=== PATIENT | male | born 1950 | race Caucasian/White ===

== ENCOUNTER 2022-08-24 13:51 | Observation (INO) | payer OTHER ==
[~2022-08-24] VITALS: Ht 170.2 cm; Wt 103.4 kg
[2022-08-24 15:06] LABS: BASOPHILS ABSOLUTE AUTO 0.06 K/mm3 (0.00-0.23); BASOPHILS PERCENT AUTO 1 % (0-2); EOSINOPHILS ABSOLUTE AUTO 0.06 K/mm3 (0.00-0.68); EOSINOPHILS PERCENT AUTO 1 % (0-6); Hematocrit 45.3 % (37.0-53.0); Hemoglobin 15.9 g/dL (13.5-17.5); IMMATURE GRAN ABSOLUTE AUTO 0.04 K/mm3 (0.00-0.10); IMMATURE GRAN PERCENT AUTO 0 % (0-1); LYMPHOCYTES ABSOLUTE AUTO 1.91 K/mm3 (0.84-5.20); LYMPHOCYTES PERCENT AUTO 21 % (21-46); MONOCYTES ABSOLUTE AUTO 0.72 K/mm3 (0.16-1.47); MONOCYTES PERCENT AUTO 8 % (4-13); Mean Corpuscular HGB 32.7 pg (26.0-34.0); Mean Corpuscular HGB Conc 35.1 g/dL (31.5-36.5); Mean Corpuscular Volume 93 fL (80-100); Mean Platelet Volume 11.4 fL (9.1-12.4); NEUTROPHILS ABSOLUTE AUTO 6.17 K/mm3 (1.96-9.15); NEUTROPHILS PERCENT AUTO 69 % (41-73); Platelet Count 175 K/mm3 (150-400); RDW Coefficient Variation 12.1 % (11.7-14.2); RDW Standard Deviation 41.8 fL (35.1-46.3); Red Blood Cell Count 4.86 M/mm3 (4.30-5.90); White Blood Cell Count 8.96 K/mm3 (4.00-11.30)
[2022-08-24 15:07] LABS: Base Excess Venous 2.2 mmol/L; Bicarbonate Venous 25.3 mmol/L (24.0-30.0); PCO2 Venous 48.7 mmHg (38-42); pH Blood Venous 7.36 (7.34-7.37)
[2022-08-24 16:01] LABS: Beta-hydroxybutyrate 2.1 mg/dL (0.2-2.8)
[2022-08-24 16:18] LABS: Albumin, Blood 3.3 g/dL (3.4-5.0); Albumin/Globulin Ratio 0.9 (0.8-1.8); Bilirubin, Total 0.6 mg/dL (0.1-1.0); Bun/Creatinine Ratio 31.3 (12.0-20.0); Calcium, Blood 9.1 mg/dL (8.5-10.1); Creatinine, Blood 0.93 mg/dL (0.60-1.20); Globulin, Blood 3.8 g/dL (2.2-4.0); Total Protein, Blood 7.1 g/dL (6.4-8.2)
--- NOTE | 2022-08-24 23:54 | NUR ---
ASSUMPTION OF CARE THIS RN ASSUMED CARE OF PT AT 2015; REPORT FROM MAT CLEANING MACHINE OPERATOR, DEBORA. PT ARRIVED VIA [facility] [place], PT ABLE TO TRANSFER SELF TO PCU HOSPITAL BED. PT VSS. PT ON RA, SPO2 96 - 98%. PT A&O X4; INTERACTIVE AND PLEASANT. PT IS INTERACTING WITH STAFF, ALTHOUGH AFFECT IS FLAT. PT ANSWERING QUESTIONS APPROPRIATELY AND CORRECTLY. PT DENIES SOB. PT REPORTS 1/10 CP/PRESSURE. STATES "JUST FEELS LIKE SOMETHING IS THERE". PT REPORTS FEELING MILD PALPIATIONS FOR "SEVERAL WEEKS NOW". DENIES DIZZINESS, LIGHTHEADNESS, N/V. PT REPORTS INCREASE IN FREQUENCY OF VOIDING "FOR A LITTLE WHILE" "ESPECIALLY WHEN BLOOD SUGAR IS HIGH". REPORTS INCONSISTENCY IN BM; REPORTS THAT IT IS NOT "REGULAR OR OFTEN IT USUALLY IS". PT DOES REPORT SOME TINGLING AND NUMBNESS IN BLE "RELATED TO NEUROPATHY". PT DENIES ANY GENERAL PAIN AT THIS TIME. CBG 199. PT REPORTS BEING HUNGRY, SMALL SNACK PROVIDED. PT REPORTS HE HAS BEEN "HOPELESS AND DEPRESSED" D/T HIS CURRENT MARITAL PROBLEMS AND HIS SPOUSE "LEAVING HIM" PT DENIES DESIRE OR THOUGHTS TO CAUSE SELF HARM, DENIES ANY PLANS TO DO SO. PT DOES REPORT FEELING "LIKE HE IS DOWN AND IF HIS TIME WAS OVER HE WOULD BE OKAY WITH IT". PT APPEARS SAD D/T THIS SITUATION. THIS RN PROVIDED THERAPEUTIC COMMUNICATION AND LISTENING. PT DENIES ANY OTHER NEEDS OR CONCERNS AT THIS TIME. PT DOES HAVE NICOTINE PATCH ON L SHOULDER, THIS IS HIS FROM HOME. DECLINES NEED FOR PROVIDER TO ORDER ANY PATCHES WHILE HERE. THIS RN INFORMED HIM THAT IF HE CHANGED HIS MIND, WE COULD GET THEM ORDERED FOR HIM. PT VERBALIZED UNDERSTANDING. PT ORIENTED TO ROOM AND CALL LIGHT IN REACH
[2022-08-25 01:22] LABS: U Amphetamine Screen Not Detected; U Barbituate Screen Not Detected; U Benzodiazapine Screen Not Detected; U Buprenorphine Screen Not Detected; U Cannabinoids Screen Not Detected; U Cocaine Screen Not Detected; U Methadone Screen Not Detected; U Methamphetamine Screen Not Detected; U Opiates Screen Not Detected; U Oxycodone Screen Not Detected; U Phencyclidine Screen Not Detected; U Propoxyphene Screen Not Detected
--- NOTE | 2022-08-25 02:11 | NUR ---
ROUNDING; 0000 0000 VSS. PT SLEEPING ON AND OFF THROUGHOUT SHIFT. PT REPORTS NO CHANGES IN CP/PRESSURE; STILL RATING IT AT 1/10 W/NO CHANGES TO CHARACTERISTICS IN PRESENTATION. LR INFUSING PER EMAR. PT USING URINAL AT BEDSIDE INDEPENDENTLY. PT DENIES OTHER NEEDS OR CONCERNS AT THIS TIME. CALL LIGHT IN REACH
--- NOTE | 2022-08-25 02:13 | NUR ---
ROUNDING 0200 NO CHANGES. PT REMAINS STABLE. PT APPEARS TO BE SLEEPING WELL AT THIS TIME. CALL LIGHT IN REACH
[2022-08-25 04:30] LABS: Hematocrit 43.4 % (37.0-53.0); Hemoglobin 15.2 g/dL (13.5-17.5); Mean Corpuscular HGB 32.3 pg (26.0-34.0); Mean Corpuscular Volume 92 fL (80-100); Mean Platelet Volume 10.7 fL (9.1-12.4); Platelet Count 169 K/mm3 (150-400); RDW Coefficient Variation 12.3 % (11.7-14.2); RDW Standard Deviation 41.9 fL (35.1-46.3); White Blood Cell Count 9.17 K/mm3 (4.00-11.30)
[2022-08-25 04:57] LABS: Albumin, Blood 2.9 g/dL (3.4-5.0); Albumin/Globulin Ratio 0.9 (0.8-1.8); Bilirubin, Total 0.8 mg/dL (0.1-1.0); Bun/Creatinine Ratio 26.3 (12.0-20.0); Calcium, Blood 8.3 mg/dL (8.5-10.1); Creatinine, Blood 0.72 mg/dL (0.60-1.20); Globulin, Blood 3.2 g/dL (2.2-4.0); Magnesium, Blood 2.1 mg/dL (1.6-2.4); Thyroid Stimulating Hormone 1.09 uIU/mL (0.360-4.800); Total Protein, Blood 6.1 g/dL (6.4-8.2)
--- NOTE | 2022-08-25 05:11 | NUR ---
ROUNDING 0430 VSS. PT DENIES CP/PRESSURE AT THIS TIME, STATES IT HAS SUBSIDED. PT STATES HE IS RESTING WELL. DENIES ANY NEEDS OR CONCERNS AT THIS TIME. CALL LIGHT IN REACH.
--- NOTE | 2022-08-25 06:23 | NUR ---
SHIFT SUMMARY PT REMAINS A&O X4. VSS; ALTHOUGH PT HAD ONE 16 SEC RUN OF BIGEMENY/V-TACH PER WRAPPER LEAF INSPECTOR AT 0357. PT DENIED ANY SX DURING THIS TIME, OF NOTE PT WAS USING URINAL AT BEDSIDE DURING EVENT. PER WRAPPER LEAF INSPECTOR AROUND 0430, PT HAD EPISODE OF SB W/HR OF 46. OTHER THAN TELE EVENTS, NO SIGNIFICANT EVENTS OVERNIGHT. NO ACUTE CHANGES FROM ASSUMPTION OF CARE NOTE. PT REPORTS AT THIS TIME THAT CP/PRESSURE HAVE SUBSIDED. PT CONTINUES TO DENY DIZZINESS AND LIGHTHEADNESS. PT REPORT EVENT OF FEELING "UNSETTLED OR NAUSEOUS" AFTER EATING SNACK, BUT WAS SHORT IN DURATION. NO REPORTS SINCE. PT REPOSITIONS INDEPENDENTLY AND USING URINAL AT BEDSIDE INDEPENDENTLY. PT HAD BM X1 THIS SHIFT. CALL LIGHT IN REACH AND BED IN LOWEST POSITION. WILL UPDATE ONCOMING RN.
[2022-08-25] MEDS ORDERED: JARDIANCE10 MG PO (12:10)
[2022-08-25] MEDS ORDERED: GLIP5 PO (12:11)
[2022-08-25] MEDS ORDERED: METO100ER PO (12:12)
[2022-08-25] MEDS ORDERED: BASAGLAR K100 UNIT/1 SC (12:34)
[2022-08-25] MEDS ORDERED: HUMALOG KW100 UNIT/1 SC (12:36)
[2022-08-25] MEDS ORDERED: AMLO5 PO (12:37)
[2022-08-25] MEDS ORDERED: Toprol Xl50 MG PO (12:38)
--- NOTE | 2022-08-25 13:30 | NUR ---
DISCHARGE SUMMARY PT DISCHARGED HOME WITH HIS BROTHER. DISCHARGE TEACHING COMPLETED INCLUDING NEW MEDICATION LIST, FOLLOW UP APPOINTMENT AND DISCHARGE TEACHING. PT ABLE TO VERBALLY REPEAT AND DEMONSTRATE USE OF INSULIN PENS AND SLIDING SCALE INSULIN DOSAGE, NO FURTHER QUESTIONS AT THIS TIME. PT STATES UNDERSTANDING OF NEW MEDICATIONS WELL. IV AND TELE REMOVED. PT ABLE TO DRESS HIM SELF AND IS AMBULATORY IN ROOM, GAIT STEADY. RXs SENT TO [facility] AT PT'S REQUEST. NO FURTHER DISCHARGE NEEDS NOTED AT THIS TIME. PT LEFT HOSPITAL WITH ALL BELONGINGS.
== END 2022-08-25 13:32 | disposition home or self-care (01) ==
LOC: ER 13:51 → PCU 13:52
PROVIDERS: Student in an Organized Health Care Education/Training Program; ADMIT Student in an Organized Health Care Education/Training Program
DX: E11.65 Type 2 diabetes mellitus with hyperglycemia (principal); E87.1 Hypo-osmolality and hyponatremia; I47.20 Ventricular tachycardia, unspecified; E66.9 Obesity, unspecified; Z87.891 Personal history of nicotine dependence; Z68.34 Body mass index [BMI] 34.0-34.9, adult; Z88.2 Allergy status to sulfonamides; Z88.8 Allergy status to other drugs, medicaments and biological substances
CPT/HCPCS: 36415; 71045; 80053; 82010; 82803; 82947; 83036; 83735; 83880; 84443; 84484; 85025; 85027; 93005; 93010; 93306; 96361; 96365-59; 96366-59; 96372; 99285-25; A9270; G0378; J1650; J1815; J3475; J7030; J7120

== ENCOUNTER 2022-12-24 10:23 | Inpatient (IN) | payer OTHER ==
[~2022-12-24] VITALS: Ht 170.2 cm; Wt 96.8 kg
[~2022-12-24 10:23] MED LIST: AMLO5 PO; BASAGLAR K100 UNIT/1 SC; GLIP5 PO; HUMALOG KW100 UNIT/1 SC; JARDIANCE10 MG PO; METO100ER PO; Toprol Xl50 MG PO
[2022-12-24 11:50] LABS: BASOPHILS ABSOLUTE AUTO 0.05 K/mm3 (0.00-0.23); BASOPHILS PERCENT AUTO 0 % (0-2); EOSINOPHILS PERCENT AUTO 0 % (0-6); Hemoglobin 16.1 g/dL (13.5-17.5); IMMATURE GRAN ABSOLUTE AUTO 0.09 K/mm3 (0.00-0.10); IMMATURE GRAN PERCENT AUTO 1 % (0-1); LYMPHOCYTES ABSOLUTE AUTO 0.66 K/mm3 (0.84-5.20); LYMPHOCYTES PERCENT AUTO 5 % (21-46); MONOCYTES PERCENT AUTO 6 % (4-13); Mean Corpuscular HGB 32.9 pg (26.0-34.0); Mean Corpuscular HGB Conc 34.3 g/dL (31.5-36.5); Mean Corpuscular Volume 96 fL (80-100); Mean Platelet Volume 11.3 fL (9.1-12.4); NEUTROPHILS ABSOLUTE AUTO 12.07 K/mm3 (1.96-9.15); NEUTROPHILS PERCENT AUTO 88 % (41-73); Platelet Count 125 K/mm3 (150-400); RDW Standard Deviation 49.6 fL (35.1-46.3); White Blood Cell Count 13.67 K/mm3 (4.00-11.30)
[2022-12-24 12:52] LABS: Alanine Aminotransfer (ALT/SGP 21 U/L (12-78); Albumin, Blood 2.6 g/dL (3.4-5.0); Albumin/Globulin Ratio 0.6 (0.8-1.8); Alk Phos 77 U/L (50-136); Anion Gap 7 mmol/L (6-16); Aspartate Aminotrans (AST/SGOT 29 U/L (12-37); Blood Urea Nitrogen 19 mg/dL (8-24); Bun/Creatinine Ratio 16.8 (12.0-20.0); C-REACTIVE PROTEIN, EXT RANGE >19.000 mg/dL (0.000-0.300); CO2, Blood 26 mmol/L (21-32); Calcium, Blood 9.1 mg/dL (8.5-10.1); Chloride, Blood 101 mmol/L (98-108); Creatinine, Blood 1.13 mg/dL (0.60-1.20); Globulin, Blood 4.6 g/dL (2.2-4.0); Glomerular Filtration Rate 69 (60-); Glucose, Blood 192 mg/dL (70-99); Potassium, Blood 4.6 mmol/L (3.5-5.5); Sodium, Blood 134 mmol/L (136-145); Total Protein, Blood 7.2 g/dL (6.4-8.2)
[2022-12-24 17:50] VITALS: BP 129/63
--- NOTE | 2022-12-24 17:53 | NUR ---
ADMISSION NOTE PATIENT ARRIVED AT 1746 FROM ED. VITAL SIGNS REVIEWED. ADA DINNER TRAY ORDERED. ONOFRE VARELA WORKING ON ADMISSION ASSESSMENT. PATIENT LAYING COMFORTABLY IN BED WITH CALL LIGHT IN REACH.
[2022-12-24] MEDS ORDERED: TAMS.4ER PO (18:30)
[2022-12-24] MEDS ORDERED: GLIP5ER PO (18:30)
[2022-12-24] MEDS ORDERED: ELIQUIS5 M2 PO (18:30)
[2022-12-24] MEDS ORDERED: ENAL10 PO (18:32)
[2022-12-24 19:47] VITALS: BP 128/48
[2022-12-24 22:36] VITALS: BP 133/69
[2022-12-25 03:12] VITALS: BP 139/91
--- NOTE | 2022-12-25 04:33 | NUR ---
SHIFT SUMMARY PATIENT ALERT, PLEASANT AFFECT. DENIES SEVER PAIN, STATES LLE HURTS WITH MOVEMENT. IS ABLE TO STAND/PIVOT WITH ASSIST. DECLINES TO BARE WEIGHT ON LLE. DENIES SOB NOR DIFFICULTY BREATHING. ON TELE, AFIB 80-90s, VS OTHERWISE STABLE THROUGHOUT SHIFT. NPO SINCE MIDNIGHT, PENDING ORTHO CONSULT IN AM RE LEFT KNEE CELLULITIS. PIV TO LEFT AC INFUSING LR AT 100mL/HR. PATIENT EDUCATED ON FIRE SAFETY AND RISK OF INJURY R/T USE OF OXYGEN, VERBALIZED UNDERSTANDING, DENIES ACCESS TO ANY SOURCE OF IGNITION. BED IN LOW POSITION, CALL LIGHT WITHIN REACH.
[2022-12-25 05:37] LABS: Hematocrit 43.8 % (37.0-53.0); Hemoglobin 15.1 g/dL (13.5-17.5); Mean Corpuscular HGB 32.5 pg (26.0-34.0); Mean Corpuscular HGB Conc 34.5 g/dL (31.5-36.5); Mean Corpuscular Volume 94 fL (80-100); RDW Coefficient Variation 13.9 % (11.7-14.2); RDW Standard Deviation 48.5 fL (35.1-46.3); Red Blood Cell Count 4.64 M/mm3 (4.30-5.90); White Blood Cell Count 9.93 K/mm3 (4.00-11.30)
[2022-12-25 05:38] LABS: Mean Platelet Volume 11.2 fL (9.1-12.4); Platelet Count 131 K/mm3 (150-400)
[2022-12-25 05:59] LABS: Bun/Creatinine Ratio 21.3 (12.0-20.0); Calcium, Blood 9.1 mg/dL (8.5-10.1); Creatinine, Blood 1.08 mg/dL (0.60-1.20); Potassium, Blood 3.8 mmol/L (3.5-5.5)
[2022-12-25 06:01] LABS: BAND PERCENT MAN 14 % (0-8); BASOPHILS PERCENT MAN 0 % (0-2); EOSINOPHILS PERCENT MAN 0 % (0-6); LYMPHOCYTES % ATYPICAL MANUAL 1 % (0-0); LYMPHOCYTES ABSOLUTE MAN 0.99 K/mm3 (0.84-5.20); LYMPHOCYTES PERCENT MAN 9 % (21-46); MONOCYTES ABSOLUTE MAN 0.49 K/mm3 (0.16-1.47); MONOCYTES PERCENT MAN 5 % (4-13); NEUTROPHILS ABSOLUTE MAN 8.44 K/mm3 (1.96-9.15); SEG NEUTROPHILS PERCENT MAN 71 % (41-73); TOTAL CELLS COUNTED 100
[2022-12-25 08:51] VITALS: BP 149/54
[2022-12-25 11:12] LABS: RBC Count, Synovial Fluid 80000 /mm3 (0-0); WBC Count, Synovial Fluid >200000 /mm3 (0-180)
[2022-12-25 13:22] LABS: Body Fluid Crystals NEG (NEGATIVE)
[2022-12-25 13:26] LABS: Color, Synovial Fluid Yellow (None-P Yel); Lymphs, Synovial Fluid 9 % (0-15); Monocytes/Macrophages, Synovia 7 % (0-65); Neutrophils, Synovial Fluid 84 % (0-24)
[2022-12-25 13:27] LABS: Appearance, Synovial Fluid Cloudy (Clear)
[2022-12-25 15:45] VITALS: BP 156/79
[2022-12-25 16:28] LABS: Anti-Xa UFH, PHA Monitoring <0.10 IU/mL; International Normalized Ratio 1.02; Prothrombin Time Results 10.7 Sec (9.7-11.5)
--- NOTE | 2022-12-25 16:51 | NUR ---
SHIFT SUMMARY A&OX4, NAPPED T/O DAY. PAIN IN LLE, NO CHEST PAIN OR DIZZINESS. CONTNUED LEFT SIFED NUMBNESS BUT DOING BETTER WITH PHYSICAL THERAPY EXERCISES. COMPLAINED OF 8/10 LUQ PAIN, NO SWELLING NOTED. MEDICATED WITH TYLENOL AND PAIN DECREASED TO 5/10. PT HAD A BOUT OF LOOSE STOOL IN THE AFTERNOON. AND DOG IN ROOM WITH PATIENT ALL DAY. LEAVES PERIODICALLY TO "CHECK ON THE CAT THAT'S OUT IN THE CAR." NO SOURCES OF IGNITION PRESENT, ASSESSED DURING HOURLY ROUNDING. PATIENT'S IV AND TELE DC'D. NO ACUTE CHANGES THIS SHIFT.
[2022-12-25 19:32] VITALS: BP 152/74
[2022-12-26] VITALS (12 sets, daily range): BP systolic 101–171; BP diastolic 47–87
[2022-12-26 01:15] LABS: Hematocrit 40.6 % (37.0-53.0); Mean Corpuscular HGB 32.3 pg (26.0-34.0); Mean Corpuscular HGB Conc 34.5 g/dL (31.5-36.5); Mean Corpuscular Volume 94 fL (80-100); Mean Platelet Volume 11.2 fL (9.1-12.4); Platelet Count 126 K/mm3 (150-400); RDW Standard Deviation 48.5 fL (35.1-46.3); Red Blood Cell Count 4.33 M/mm3 (4.30-5.90); White Blood Cell Count 7.99 K/mm3 (4.00-11.30)
[2022-12-26 02:18] LABS: Calcium, Blood 8.5 mg/dL (8.5-10.1); Potassium, Blood 3.5 mmol/L (3.5-5.5)
--- NOTE | 2022-12-26 05:07 | NUR ---
SHIFT SUMMERY PT RESTING IN BED, PT HAS ON CPAP. PT UP TO BR FOR BM X 1. HEP DRIP AJUSTED X1 DURRING THE NIGHT. CALL LIGHT IN REACH, FIRE SAFETY REVIEWED.
[2022-12-26 12:49] LABS: Vancomycin, Trough 6.9 ug/mL (5.0-10.0)
--- NOTE | 2022-12-26 13:11 | NUR ---
SPOKE WITH DR BAZAN AND DR SEGURA REGARDING PATIENT ON HEPARIN GTT. NEW ORDERS TO STOP GTT AND GET A LEVEL NOW AND ANOTHER ONE IN 1 HOUR. CALLED TO FLOOR NURSE AND PHARMACY WITH NEW ORDERS.
--- NOTE | 2022-12-26 17:26 | NUR ---
SHIFT SUMMARY PT RESTING QUIETLY WITH CPAP ON DURING SHIFT REPORT; DENIED NEEDS. HEPARIN DRIP INFUSING PER EMAR. PT NPO SINCE [place] FOR I&D ON L KNEE TODAY. LLE VERY RED AND SWOLLEN. PT UP TO BTHRM USING FWW AND SBA ASSIST, BUT REPORTS PAIN WITH WT BEARING TO LLE. 1435 OR STAFF HERE TO TAKE PT DOWN FOR I&D; HEPARIN DRIP STOPPED EARLIER PER ADVERTISING INSERTER, AFTER TALKING TO MD. LAB DRAWS DONE PER ORDERS PLACED. FAMILY TO RM JUST PRIOR TO PT GOING FOR PROCEDURE AND REMAIN IN WAITING FOR PT TO RETURN. PROCEDURE TO BE NEAR COMPLETION.
--- NOTE | 2022-12-26 20:03 | NUR ---
1800 PT RETURNED TO RM AFTER L KNEE I&D. REPORT GIVEN AT BS. DR SCHRADER NOTIFIED REGARDING HEPARIN DRIP. INSTRUCTIONS GIVEN TO CONTACT ORTHO FOR ORDERS R/T HEPARIN. DR CISNEROS ANS NOTIFIED AND DR CISNEROS LATER RETURNED CALL. HEPARIN TO BE HELD UNTIL AM. REPORT GIVEN TO ONCOMING RN AND KEELER POLYGRAPH OPERATORCORY.
[2022-12-27 03:47] VITALS: BP 136/74
--- NOTE | 2022-12-27 04:45 | NUR ---
SHIFT SUMMERY PT RESTING IN B ED, PT DURING NIGH MEDICATED WITH TYLENOL , TORIDOL AND FENT, WITH LITTLE PAIN RELIEF, PT RATED PAIN A 9/10 ORDER FOR HOSPITALIST FOR PERCOCET. PT STATED IT HELED WITH PAIN. ICE APPLYED TO KMEE ALSO. CALL LIGHT IN REACH. FIRE LAUREANO REVIEWED.
[2022-12-27 05:07] LABS: Hematocrit 43.2 % (37.0-53.0); Hemoglobin 14.5 g/dL (13.5-17.5); Mean Corpuscular HGB 31.7 pg (26.0-34.0); Mean Corpuscular HGB Conc 33.6 g/dL (31.5-36.5); Mean Corpuscular Volume 95 fL (80-100); Mean Platelet Volume 11.6 fL (9.1-12.4); Platelet Count 130 K/mm3 (150-400); RDW Standard Deviation 49.2 fL (35.1-46.3); Red Blood Cell Count 4.57 M/mm3 (4.30-5.90); White Blood Cell Count 7.63 K/mm3 (4.00-11.30)
[2022-12-27 05:38] LABS: Albumin, Blood 1.8 g/dL (3.4-5.0); Anion Gap 7 mmol/L (6-16); Blood Urea Nitrogen 22 mg/dL (8-24); Bun/Creatinine Ratio 22.1 (12.0-20.0); CO2, Blood 25 mmol/L (21-32); Calcium, Blood 8.4 mg/dL (8.5-10.1); Chloride, Blood 108 mmol/L (98-108); Glomerular Filtration Rate 79 (60-); Glucose, Blood 221 mg/dL (70-99); Phosphorus, Blood 4.5 mg/dL (2.5-4.9); Potassium, Blood 4.2 mmol/L (3.5-5.5); Sodium, Blood 140 mmol/L (136-145)
[2022-12-27 07:31] VITALS: BP 139/74
--- NOTE | 2022-12-27 10:45 | NUR ---
ASSUMED CARE AND COMFORT OF THIS PATIENT AT 0715 THIS AM. FIRE SAFETY ROUNDING DONE AT REPORT. NO CONCERNS NOTED. PATIENT WAS RESTING IN BED. ENCOURAGED TO MOVE AND TURN TO ASSIST IN PREVENTING SKIN BREAKDOWN. PATIENT EDUCATED AND VERBALIZED UNDERSTANDING.
--- NOTE | 2022-12-27 14:49 | NUR ---
ASSUMED CARE A/O HEPARIN INFUSING CORRECTED DOCUMENTATION PER PHARMACY. 20 UNITS AN HOUR. ONE PERSON ASSIST WITH WALKER AT SIDE OF BED TO USE URNIAL, PT GIVEN PAIN MED FOR LEFT LEG PAIN NOW COMFORTABLE IN BED., BILATERAL IV INFUSING VANCO TO RIGHT FA NO S/S INFILTRATION.
[2022-12-27 16:17] VITALS: BP 126/64
--- NOTE | 2022-12-27 19:17 | NUR ---
REPORT GIVEN TO TOSIN VARELA. PT W/O COMPLAINT VSS, COVERED FOR PAIN TO LEFT LEG. RN AWARE
[2022-12-27 19:39] VITALS: BP 141/72
[2022-12-28 02:37] VITALS: BP 136/73
--- NOTE | 2022-12-28 04:05 | NUR ---
SHIFT SUMMARY PATIENT HAD NO ACUTE CHANGES OBSERVED. AXOX 4 AND ONE ASSIST TO BSC W/FWW. PIVS REMAIN INTACT. HEPARIN INFUSING @ 31.2 mL/HR MANAGE BY PHARMACY. IV ABX INFUSED. TELE MONITOR NSR 83. CBG 223. REPORTED LEFT KNEE PAIN X TWO AND PERCOCET GIVEN PER EMAR. VSS/AFEBRILE. DENIES CHEST PAIN, SOB, AND N/V. CPAP ON AT NIGHT. CALL LIGHT IN REACH. BED IN LOWEST POSITION. WILL CONTINUE TO MONITOR UNTIL DAY SHIFT NURSE ASSUMES CARE.
[2022-12-28 05:35] LABS: Hematocrit 39.7 % (37.0-53.0); Hemoglobin 13.8 g/dL (13.5-17.5); Mean Corpuscular HGB 32.2 pg (26.0-34.0); Mean Corpuscular HGB Conc 34.8 g/dL (31.5-36.5); Mean Corpuscular Volume 93 fL (80-100); Mean Platelet Volume 10.9 fL (9.1-12.4); Platelet Count 168 K/mm3 (150-400); RDW Coefficient Variation 14.3 % (11.7-14.2); RDW Standard Deviation 48.9 fL (35.1-46.3); Red Blood Cell Count 4.28 M/mm3 (4.30-5.90); White Blood Cell Count 8.38 K/mm3 (4.00-11.30)
[2022-12-28 05:58] LABS: Albumin, Blood 1.8 g/dL (3.4-5.0); Anion Gap 4 mmol/L (6-16); Blood Urea Nitrogen 22 mg/dL (8-24); Bun/Creatinine Ratio 22.7 (12.0-20.0); CO2, Blood 28 mmol/L (21-32); Calcium, Blood 8.4 mg/dL (8.5-10.1); Chloride, Blood 109 mmol/L (98-108); Creatinine, Blood 0.97 mg/dL (0.60-1.20); Glomerular Filtration Rate 82 (60-); Glucose, Blood 130 mg/dL (70-99); Phosphorus, Blood 2.9 mg/dL (2.5-4.9); Potassium, Blood 4.1 mmol/L (3.5-5.5); Sodium, Blood 141 mmol/L (136-145)
[2022-12-28 07:23] VITALS: BP 128/92
--- NOTE | 2022-12-28 16:08 | NUR ---
SHIFT SUMMARY: PATIENT A&OX4. PLEASANT AND COOPERATIVE c CARE. USES CALL LIGHT APPROPRIATELY AND ABLE TO MAKE NEEDS KNOWN. PATIENT WORK c PT MOBILITY THIS PM. PATIENT AMBULATES c FWW IN THE HALLWAY AND BACK IN ROOM c PT'S ASSISTANCE AND TOLERATED WELL. PT RECOMMENDED DC HOME c HH SERVICES. DRESSING CHANGED TO L KNEE WAS DONE BY DR. SEGURA THIS AFTERNOON. PAIN TO L KNEE WELL CONTROLLED c PAIN MEDS PER EMAR AND REPOSITIONING. RECEIVED SCHEDULED MEDS PER EMAR. VITAL SIGNS REVIEWED. PIV TO R FOREARM SALINE LOCKED, PIV TO L WRIST INFUSING HEPARIN c NO CHANGES IN RATE PER PHARMACY. CALL LIGHT IN REACH.
[2022-12-28 16:39] VITALS: BP 140/77
--- NOTE | 2022-12-28 18:47 | NUR ---
ADDITIONAL NOTE: PATIENT STILL ON TELE, SR HR RANGES 60'S-90'S BPM c OCCASIONAL PAC AND PVC T/O SHIFT. AT AROUND 1600'S RECEIVED CALL FROM GAMEPLAY ENGINEER, JAQUELIN FELICIANO PATIENT HAD BIGEMINY. PER GAMEPLAY ENGINEER IS NOT NEW, PATIENT HAD EPISODE OF BIGEMINY BACK IN 12/26 AND 12/27. REPORT TO TRANSITION PROGRAM MANAGER, MANISH ALVAREZ REGARDING THIS ISSUE. PER MANISH TO CONTINUE TO MONITOR PATIENT CONDITION. PT EDUCATED ON NON SMOKING POLICY, RISK OF INJURY, AND IGNITION SOURCES WHEN O2 IN USE. PATIENT DENIES SMOKING AND STATED UNDERSTANDING.
[2022-12-28 20:47] VITALS: BP 153/73
[2022-12-29 03:01] VITALS: BP 161/75
--- NOTE | 2022-12-29 03:16 | NUR ---
PT HAD 6 BEAT RUN OF VTACH. PT EXPERIENCING NAUSEA. DR. RAVI NOTIFIED. TREATED NAUSEA PER EMAR
[2022-12-29 05:04] LABS: Hematocrit 41.6 % (37.0-53.0); Mean Platelet Volume 10.8 fL (9.1-12.4); Platelet Count 219 K/mm3 (150-400)
--- NOTE | 2022-12-29 05:12 | NUR ---
SHIFT SUMMARY PT IS ALERT AND ORIENTED X4. PAIN HAS BEEN HARD TO CONTROL. PT HAD 6 BEAT RUN OF VTACH. NOTIFIED HOWEVER NO ACUTE CHANGES OVER NIGHT. Q4 HR TURNS PT ON R/A. DURING HOURLY ROUNDING, EDUCATION PROVIDED ON RISKS OF INJURY WHILE USING AN IGNITION SOURCE AROUND OXYGEN. THE PT VERBALIZES UNDERSTANDING AND DENY HAVING ANY IGNITION SOURCES
[2022-12-29 07:39] VITALS: BP 133/63
[2022-12-29 08:19] LABS: Albumin, Blood 1.8 g/dL (3.4-5.0); Anion Gap 5 mmol/L (6-16); Blood Urea Nitrogen 16 mg/dL (8-24); Bun/Creatinine Ratio 18.9 (12.0-20.0); CO2, Blood 28 mmol/L (21-32); Chloride, Blood 109 mmol/L (98-108); Creatinine, Blood 0.85 mg/dL (0.60-1.20); Glomerular Filtration Rate 92 (60-); Glucose, Blood 103 mg/dL (70-99); Magnesium, Blood 1.6 mg/dL (1.6-2.4); Phosphorus, Blood 3.1 mg/dL (2.5-4.9); Potassium, Blood 3.9 mmol/L (3.5-5.5); Sodium, Blood 142 mmol/L (136-145)
[2022-12-29 15:56] VITALS: BP 151/60
--- NOTE | 2022-12-29 17:29 | NUR ---
SHIFT SUMMARY: PATIENT A&OX4. PLEASANT AND COOPERATIVE c CARE. DENIES CP/PRESSURE, SOB, N/V. STILL ON TELE, SR HR IN THE MID 80'S BPM c OCCASIONAL PAC AND PVC-BIGEMINY. RA c SPO2 RANGES 90-94% T/O SHIFT. L LEG IMMOBILIZER IN PLACE. PAIN TO L KNEE WELL CONTROLLED c EMAR PAIN MEDS AND REPOSITIONING T/O SHIFT. PATIENT PARTICIPATED c PT MOBILTY TODAY AND TOLERATED WELL. VITAL SIGNS REVIEWED. PIV TO FOREARM SALINE LOCKED. PIV TO L HAND INFUSING HEPARIN, RATE CONTROLLED BY PHARMACY. RECEIVED SCHEDULED MEDS PER EMAR. PATIENT EATING AND DRINKING WELL. CONTINENT OF BOWELS AND BLADDER. CALL LIGHT IN REACH.
[2022-12-29 20:32] VITALS: BP 168/71
--- NOTE | 2022-12-30 03:58 | NUR ---
SHIFT SUMMARY 72 YR M ADMITTED ON 12/24/22 FOR SEPSIS/LEFT KNEE CELLULITIS. FULL CODE. NO ACUTE CHANGES THIS SHIFT. PT C/O PAIN IN LEFT KNEE AND MEDICATED PER EMAR W/ GOOD RESULTS. PER PHARMACY, HEPARIN WAS DC'D AT 1999 AND ELEQUIS WAS STARTED AT 2099. NO CALLS FROM KINESIOLOGY PROFESSOR THIS SHIFT. PT IS PLEASANT AND COOPERATIVE W/ CARE. CALLS APPROPRIATELY. PT HAS BEEN EDUCATED ON IGNITION DANGER AND FIRE SAFETY WHILE OXYGEN IS IN USE.
[2022-12-30 07:32] VITALS: BP 162/85
[2022-12-30 16:12] VITALS: BP 152/73
[2022-12-30 19:26] VITALS: BP 167/73
--- NOTE | 2022-12-30 19:31 | NUR ---
SHIFT SUMMARY: PATIENT A&OX4. PLEASANT AND COOPERATIVE c CARE. USES CALL LIGHT APPROPRIATELY AND ABLE TO MAKE NEEDS KNOWN. L KNEE DRESSING C/D/I AND WRAP c NILS WRAP, IMMOBILZER IN PLACE. PAIN TO L KNEE WELL CONTROLLED c EMAR PAIN MEDS AND REPOSITIONING T/O SHIFT. EATING AND DRINKING WELL. VITAL SIGNS REVIEWED. NO NEW ACUTE CHANGES THIS SHIFT. CALL LIGHT IN REACH.
[2022-12-31 03:27] VITALS: BP 168/77
[2022-12-31 04:40] LABS: Hematocrit 41.6 % (37.0-53.0); Hemoglobin 14.2 g/dL (13.5-17.5); Mean Corpuscular HGB 31.4 pg (26.0-34.0); Mean Corpuscular HGB Conc 34.1 g/dL (31.5-36.5); Mean Corpuscular Volume 92 fL (80-100); Mean Platelet Volume 10.3 fL (9.1-12.4); Platelet Count 262 K/mm3 (150-400); RDW Coefficient Variation 14.2 % (11.7-14.2); RDW Standard Deviation 48.1 fL (35.1-46.3); Red Blood Cell Count 4.52 M/mm3 (4.30-5.90); White Blood Cell Count 8.87 K/mm3 (4.00-11.30)
--- NOTE | 2022-12-31 04:51 | NUR ---
SHIFT SUMMARY PT REPORTS HAVING BETTER SLEEP AND PAIN CONTROL WITH Q4HR MEDICATION SCHEDULE. NO ACUTE CHANGES OVERNIGHT. BED IS IN THE LOWEST POSITION WITH CALL LIGHT IN REACH. PT DENIES HAVING IGNITION SOURCE. CONTINUED EDUCAITON PROVIDED ON RISKS OF HAVING IGNITION SOURCE NEAR OXYGEN . PT VERBALIZES UNDERSTANDING. BED IS IN LOWEST POSITION WITH CALL LIGHT IN REACH
[2022-12-31 04:55] LABS: Bun/Creatinine Ratio 15.1 (12.0-20.0); Calcium, Blood 8.3 mg/dL (8.5-10.1); Creatinine, Blood 0.79 mg/dL (0.60-1.20)
[2022-12-31 07:52] VITALS: BP 164/96
[2022-12-31 15:35] VITALS: BP 146/59
--- NOTE | 2022-12-31 16:15 | NUR ---
SHIFT SUMMARY PT AOX4, SBA TO THE BATHROOM. HE WAS HOPING TO GO HOME TODAY BUT THAT IS NOT GOING TO HAPPEN TO LOGISTICAL DETAILS. PT IS AWARE, CASE MANAGEMENT SPOKE WITH THE PT WELL. POWERGLIDE PLACED TODAY BY THE CHARGE NURSE FOR ABX TX OUTPT IN THE FUTURE. PT HAS C/O PAIN AND MEDICATED PER THE EMAR. L LEG BRACE IN PLACE. PT WAS INFORMED OF THE FIRE SAFETY AND PROTOCOLS. PT ACKNOWLEDGED UNDERSTANDING AND NO IGNITION SOURCES WERE NOTED. CALL LIGHT WITHIN REACH, BED IN THE LOWEST POSITION. WILL REPORT TO ONCOMING NURSE.
[2022-12-31 20:12] VITALS: BP 143/65
[2023-01-01 03:49] VITALS: BP 154/77
--- NOTE | 2023-01-01 04:55 | NUR ---
SHIFT SUMMARY PT IS DROWSY BUT EASILY AROUSABLE, ORIENTED X4. HARD OF HEARING. PT REPORTS THAT PAIN HAS BEEN MORE ADEQUATELY CONTROLLED. CPAP OVERNIGHT. NO ACUTE CHANGES. REMOVED BRACE AND ELEVATED EXTREMETIES. +2 EDEMA NOTED IN BLE. SCD IN PLACE ON RIGHT LOWER EXTREMITY DENIES CHEST PAIN. PT EDUCATED ON RISK OF HAVING IGNITION SOURCES AROUNG OXYGEN. PT DENY HAVING IGNITION SOURCE
[2023-01-01 07:42] VITALS: BP 156/70
[2023-01-01 15:57] VITALS: BP 133/112
[2023-01-01 15:59] VITALS: BP 133/69
--- NOTE | 2023-01-01 17:20 | NUR ---
SHIFT SUMMARY PT AOX4, NO ACUTE EVENTS THIS SHIFT. PT C/O PAIN AND MEDICATED PER THE EMAR. REPOSITIONTED PRN FOR THE L LEG. PT COOPERATIVE THIS SHIFT. POWERGLIDE IN THE NILES. PT EDUCATED ON THE FIRE PROCEDURES AND PROTOCOLS. PT VERBALIZED UNDERSTANDING. CALL LIGHT WITHIN REACH, BED IN THE LOWEST POSITION. WILL REPORT TO ONCOMING NURSE.
[2023-01-01 19:50] VITALS: BP 149/63
[2023-01-02 04:06] VITALS: BP 154/67
[2023-01-02 04:10] VITALS: BP 161/72
--- NOTE | 2023-01-02 04:46 | NUR ---
SHIFT SUMMARY; NO ACUTE CHANGES OVERNIGHT. THE PT IS AXO X4 AND A 1 ASSIST TO THE BATHROOM. THE PT HAS A L KNEE BRACE THAT HE IS TO WEAR WHEN HE IS UP AND AMBULATING. THE PTS L KNEE IS WRAPPED IN GAUZE AND NILS BANDAGE FROM A PREVIOUS I&D, DR. SEGURA DID A DRESSING CHANGE ON 12/28. PER REPORT, IS MANAGING DRESSING CHANGES, WE HAVE NO DRESSING CARE ORDERS. THE PT HAS BEEN SLEEPING IN BED FOR THE ENTIRETY OF THE NIGHT. THE PT DENIES ANY CHEST PAIN/PRESSURE, SOB OR N/V. THE PT DID ENDORSE SOME SIGNIFICANT PAIN IN HIS L KNEE FOR WHICH HE WAS MEDICATED FOR WITH GOOD RELIEF. CURRENTLY THE PT IS RESTING IN BED WITH THE BED IN THE LOWEST POSITION AND THE CALL LIGHT WITHIN REACH. FIRE SAFETY MAINTAINED T/O THE SHIFT.
[2023-01-02 07:37] VITALS: BP 163/71
[2023-01-02 08:54] LABS: BASOPHILS ABSOLUTE AUTO 0.04 K/mm3 (0.00-0.23); BASOPHILS PERCENT AUTO 0 % (0-2); EOSINOPHILS ABSOLUTE AUTO 0.02 K/mm3 (0.00-0.68); EOSINOPHILS PERCENT AUTO 0 % (0-6); Hematocrit 43.9 % (37.0-53.0); Hemoglobin 14.8 g/dL (13.5-17.5); IMMATURE GRAN PERCENT AUTO 1 % (0-1); LYMPHOCYTES ABSOLUTE AUTO 1.32 K/mm3 (0.84-5.20); LYMPHOCYTES PERCENT AUTO 13 % (21-46); MONOCYTES ABSOLUTE AUTO 0.78 K/mm3 (0.16-1.47); MONOCYTES PERCENT AUTO 8 % (4-13); Mean Corpuscular HGB 31.6 pg (26.0-34.0); Mean Corpuscular HGB Conc 33.7 g/dL (31.5-36.5); Mean Corpuscular Volume 94 fL (80-100); Mean Platelet Volume 10.2 fL (9.1-12.4); NEUTROPHILS PERCENT AUTO 78 % (41-73); Platelet Count 343 K/mm3 (150-400); RDW Coefficient Variation 14.1 % (11.7-14.2); RDW Standard Deviation 48.4 fL (35.1-46.3); Red Blood Cell Count 4.68 M/mm3 (4.30-5.90); White Blood Cell Count 10.36 K/mm3 (4.00-11.30)
[2023-01-02 09:15] LABS: Albumin, Blood 2.1 g/dL (3.4-5.0); Albumin/Globulin Ratio 0.5 (0.8-1.8); Bun/Creatinine Ratio 13.2 (12.0-20.0); Calcium, Blood 8.8 mg/dL (8.5-10.1); Creatinine, Blood 0.83 mg/dL (0.60-1.20); Globulin, Blood 4.5 g/dL (2.2-4.0); Potassium, Blood 4.2 mmol/L (3.5-5.5); Total Protein, Blood 6.6 g/dL (6.4-8.2)
[2023-01-02 15:44] VITALS: BP 153/74
--- NOTE | 2023-01-02 18:19 | NUR ---
SHIFT SUMMARY: JUST AFTER 0700 THIS MORNING, WAS HAVING SEVERAL RUNS OF V TACH (6-18 BEATS), AND PVC'S > 15/MINUTE WITH SOME BIGEMINY. DR. DURAN NOTIFIED; LABS DRAWN AND MORNING BP MEDS GIVEN. AFTER ~ 1100, NO FURTHER EPISODES WERE REPORTED. PATIENT DENIED CHEST DISCOMFORT, PRESSURE, AND SOB DURING THESE EPISODES. C/O PAIN IN LLE; MEDICATED PER EMAR WITH SOME RELIEF. USING URINAL INDEPENDENTLY. APPETITE GOOD. EXPRESSED FRUSTRATION WITH STILL BEING IN HOSPITAL, WAS TRYING TO HELP ARRANGE INFUSIONS, ETC. WITH [facility], BUT THIS AUTHOR EXPLAINED THAT SUPERVISOR BROADLOOM WAS ALREADY WORKING ON IT; CM REPORTED PROGRESS TO PATIENT THIS AFTERNOON.
[2023-01-02 19:42] VITALS: BP 145/69
[2023-01-03 03:46] VITALS: BP 155/69
--- NOTE | 2023-01-03 04:49 | NUR ---
SHIFT SUMMARY NO ACUTE CHANGES TO PT CONDITION. PT PLEASANT AND COOPERATIVE WITH CARE. PT WANTING TO GET OUT OF THE HOSPITAL HERE AND GO TO [place] TO BE WITH HIS SON. PT HAS HAD NO COMPLAINTS THIS SHIFT. PT HAS SCD IN PLACE ON HIS R LEG, HIS L LEG HAS A BRACE ON IT. CALL LIGHT IS WITHIN HIS REACH AND PT HAS AN UNDERSTANDING OF HOW TO USE IT.
[2023-01-03 07:36] VITALS: BP 149/74
[2023-01-03 14:58] VITALS: BP 141/67
--- NOTE | 2023-01-03 18:10 | NUR ---
THE PATIENT IS RESTING EATING HIS DINNER AT THIS TIME, THE PATIENT HAD SEVERAL RUNS OF PAC/PVC, SOME LONG 12 SECONDS, DR. BUSTOS WAS CALLED AND SHE ORDERED CORDARONE 200 MG FOR THE PATIENT, MEDICATION SEEMED TO HELP THE SITUATION AND SLOW DOWN THE DISRYMIAS. THE PATIENT IS DISAPPOINTED THAT HIS WS NOT DISCHARGED TODAY. THE PATIENT WAS EDUCATED ON THE DANGERS OF FIRES AND IGNITION SOURCES. WILL CONTINUE TO MONITOR THE PATIENT.
[2023-01-03 20:14] VITALS: BP 137/60
[2023-01-04 04:21] VITALS: BP 93/42
[2023-01-04 05:05] VITALS: BP 120/68
--- NOTE | 2023-01-04 05:09 | NUR ---
SHIFT SUMMARY PT CONTINUES TO BE PLEASANT AND COOPERATIVE WITH CARE. PT FRUSTRATED ABOUT SITUATION AND WANTS TO BE DISCHARGED TO GO TO [place] WITH HIS SON. PT HAS CALL LIGHT WITHIN HIS REACH AND USES IT APPROPRIATELY.
[2023-01-04 07:23] VITALS: BP 116/55
[2023-01-04] MEDS ORDERED: Acetaminophen650 M1 PO (14:52)
[2023-01-04] MEDS ORDERED: Amiodarone HCl200 MG PO (14:53)
[2023-01-04] MEDS ORDERED: CEFTRIAXON1 GM/50 M1 IV (14:55)
[2023-01-04] MEDS ORDERED: Nicoderm Cq1 EAC1 TOP (14:56)
[2023-01-04] MEDS ORDERED: Percocet 5-3251 EACH PO (14:58)
[2023-01-04] MEDS ORDERED: VISBIOME 112.51 EACH PO (14:59)
--- NOTE | 2023-01-04 16:40 | NUR ---
Discharge instructions reviewed with patient. Patient verbalizes understanding. Copy given to patient to take home. Patient States Post-Procedure ride home has been arranged. Discharged via wheelchair to private car for ride home. THE PATIENT WAS DISCHARGED HOME WITH HIS SON, TO CONTINUE TREATMENT IN [place]. THE PATIENT'S PRESCRTIONS WERE FAXED TP [facility] AT [facility] IN [place], PER THE PATIENT'S REQUEST. THE PATIENT LEFT THE HOSPITAL WITH HIS POWERGLIDE IN PLACE.
== END 2023-01-04 15:28 | disposition home health service (06) | DRG 485 ==
LOC: ER 10:23 → MEDS 15:35
PROVIDERS: Emergency Medicine; Internal Medicine; Orthopaedic Surgery; Pharmacist; ADMIT Family Medicine
PROC: 0SBD0ZZ Excision of Left Knee Joint, Open Approach (ICD-10-PCS; 2022-12-26)
PROC: 3E0U029 Introduction of Other Anti-infective into Joints, Open Approach (ICD-10-PCS; 2022-12-26)
PROC: 5A09357 Assistance with Respiratory Ventilation, Less than 24 Consecutive Hours, Continuous Positive Airway Pressure (ICD-10-PCS; principal; 2022-12-26 14:00)
PROC: 3E03329 Introduction of Other Anti-infective into Peripheral Vein, Percutaneous Approach (ICD-10-PCS; 2022-12-29)
DX: T84.54XA Infection and inflammatory reaction due to internal left knee prosthesis, initial encounter (principal); A40.8 Other streptococcal sepsis; R65.20 Severe sepsis without septic shock; E87.1 Hypo-osmolality and hyponatremia; M00.262 Other streptococcal arthritis, left knee; L03.116 Cellulitis of left lower limb; E87.20 Acidosis, unspecified; I47.1 Supraventricular tachycardia; N40.0 Benign prostatic hyperplasia without lower urinary tract symptoms; D69.6 Thrombocytopenia, unspecified; I10 Essential (primary) hypertension; Y83.8 Other surgical procedures as the cause of abnormal reaction of the patient, or of later complication, without mention of misadventure at the time of the procedure; E66.9 Obesity, unspecified; E11.9 Type 2 diabetes mellitus without complications; Z68.32 Body mass index [BMI] 32.0-32.9, adult; Z87.891 Personal history of nicotine dependence; Z96.652 Presence of left artificial knee joint; Z86.718 Personal history of other venous thrombosis and embolism; Z86.79 Personal history of other diseases of the circulatory system; Z87.19 Personal history of other diseases of the digestive system; Z88.2 Allergy status to sulfonamides; Z88.8 Allergy status to other drugs, medicaments and biological substances
CPT/HCPCS: 36415; 73552; 73562-LT; 73590; 73701; 80048; 80053; 80069; 80202; 82947; 83605; 83735; 85014; 85018; 85025; 85027; 85049; 85520; 85610; 85651; 85730; 86140; 87040; 87070; 87075; 87147; 87205; 89051; 89060; 93971; 94660; 94762; 96365-59; 96366; 96367; 96375-59; 97110; 97110-CQ; 97116; 97116-CQ; 97161; 97530; 99285-25; A9270; C1713; J0696; J1100; J1644; J1815; J1885; J2250; J2405; J2543; J2704; J3010; J3370; J7050; J7120; Q9967

== ENCOUNTER 2025-03-14 00:20 | Emergency (ER) | payer OTHER ==
[~2025-03-14] VITALS: Ht 172.7 cm; Wt 120.2 kg
[~2025-03-14 00:20] MED LIST changes: +Acetaminophen650 M1 PO; +Amiodarone HCl200 MG PO; +CEFTRIAXON1 GM/50 M1 IV; +ELIQUIS5 M2 PO; +ENAL10 PO; +GLIP5ER PO; +Nicoderm Cq1 EAC1 TOP; +Percocet 5-3251 EACH PO; +TAMS.4ER PO; +VISBIOME 112.51 EACH PO
[2025-03-14 00:37] LABS: BASOPHILS ABSOLUTE AUTO 0.06 K/mm3 (0.00-0.23); BASOPHILS PERCENT AUTO 1 % (0-2); EOSINOPHILS ABSOLUTE AUTO 0.08 K/mm3 (0.00-0.68); EOSINOPHILS PERCENT AUTO 1 % (0-6); Hematocrit 40.4 % (37.0-53.0); Hemoglobin 13.5 g/dL (13.5-17.5); IMMATURE GRAN ABSOLUTE AUTO 0.04 K/mm3 (0.00-0.10); IMMATURE GRAN PERCENT AUTO 0 % (0-1); LYMPHOCYTES ABSOLUTE AUTO 3.34 K/mm3 (0.84-5.20); LYMPHOCYTES PERCENT AUTO 37 % (21-46); MONOCYTES ABSOLUTE AUTO 1.07 K/mm3 (0.16-1.47); MONOCYTES PERCENT AUTO 12 % (4-13); Mean Corpuscular HGB Conc 33.4 g/dL (31.5-36.5); Mean Corpuscular Volume 104 fL (80-100); NEUTROPHILS ABSOLUTE AUTO 4.44 K/mm3 (1.96-9.15); NEUTROPHILS PERCENT AUTO 49 % (41-73); NRBC ABSOLUTE 0.00 K/mm3 (0.00-0.02); NRBC Auto 0.0 /100 WBC (0.0-0.2); Platelet Count 169 K/mm3 (150-400); RDW Coefficient Variation 13.2 % (11.7-14.2); RDW Standard Deviation 50.5 fL (35.1-46.3)
[2025-03-14 00:57] LABS: Alanine Aminotransfer (ALT/SGP 16.0 U/L (12-78); Albumin, Blood 3.0 g/dL (3.4-5.0); Albumin/Globulin Ratio 1.2 (0.8-1.8); Anion Gap 11.0 mmol/L (3-11); Aspartate Aminotrans (AST/SGOT 12.0 U/L (12-37); Bilirubin, Total 0.4 mg/dL (0.1-1.0); Blood Urea Nitrogen 27.0 mg/dL (8-24); CO2, Blood 26.0 mmol/L (21-32); Calcium, Blood 7.8 mg/dL (8.5-10.1); Chloride, Blood 104.0 mmol/L (98-108); Creatinine, Blood 1.33 mg/dL (0.60-1.20); Ethanol (Alcohol), Blood, Med 216.0 mg/dL; Globulin, Blood 2.6 g/dL (2.2-4.0); Glucose, Blood 171.0 mg/dL (70-99); Potassium, Blood 3.3 mmol/L (3.5-5.5); Sodium, Blood 138.0 mmol/L (136-145); Total Protein, Blood 5.6 g/dL (6.4-8.2)
[2025-03-14] MEDS ORDERED: POTA10T PO (01:20)
[2025-03-14 08:31] VITALS: BP 125/67
== END 2025-03-14 08:32 | disposition home or self-care (01) ==
LOC: ER 00:20
PROVIDERS: Emergency Medicine
DX: S09.90XA Unspecified injury of head, initial encounter (principal); S00.83XA Contusion of other part of head, initial encounter; S00.31XA Abrasion of nose, initial encounter; F10.129 Alcohol abuse with intoxication, unspecified; E87.6 Hypokalemia; E11.9 Type 2 diabetes mellitus without complications; X58.XXXA Exposure to other specified factors, initial encounter; Z87.891 Personal history of nicotine dependence; Z79.899 Other long term (current) drug therapy; Z88.2 Allergy status to sulfonamides; Z88.8 Allergy status to other drugs, medicaments and biological substances
CPT/HCPCS: 70450; 80053; 80320; 84484; 85025; 93005; 93010; 99284-25

== ENCOUNTER 2025-03-16 12:40 | Observation (INO) | payer OTHER ==
[~2025-03-16] VITALS: Ht 170.2 cm; Wt 98.4 kg
[~2025-03-16 12:40] MED LIST changes: +POTA10T PO
[2025-03-16 13:29] LABS: BASOPHILS ABSOLUTE AUTO 0.06 K/mm3 (0.00-0.23); BASOPHILS PERCENT AUTO 1 % (0-2); EOSINOPHILS ABSOLUTE AUTO 0.03 K/mm3 (0.00-0.68); EOSINOPHILS PERCENT AUTO 0 % (0-6); Hematocrit 44.5 % (37.0-53.0); Hemoglobin 15.3 g/dL (13.5-17.5); IMMATURE GRAN ABSOLUTE AUTO 0.03 K/mm3 (0.00-0.10); IMMATURE GRAN PERCENT AUTO 0 % (0-1); LYMPHOCYTES ABSOLUTE AUTO 1.70 K/mm3 (0.84-5.20); LYMPHOCYTES PERCENT AUTO 20 % (21-46); MONOCYTES ABSOLUTE AUTO 1.00 K/mm3 (0.16-1.47); MONOCYTES PERCENT AUTO 12 % (4-13); Mean Corpuscular HGB Conc 34.4 g/dL (31.5-36.5); Mean Corpuscular Volume 101 fL (80-100); NEUTROPHILS ABSOLUTE AUTO 5.66 K/mm3 (1.96-9.15); NEUTROPHILS PERCENT AUTO 67 % (41-73); NRBC ABSOLUTE 0.00 K/mm3 (0.00-0.02); NRBC Auto 0.0 /100 WBC (0.0-0.2); Platelet Count 181 K/mm3 (150-400); RDW Coefficient Variation 13.2 % (11.7-14.2); RDW Standard Deviation 49.7 fL (35.1-46.3)
[2025-03-16] MEDS ORDERED: LORazepam 2 MG/ML 1ML Injection IV ONE ×2 (13:40→20:05)
[2025-03-16 13:57] LABS: Alanine Aminotransfer (ALT/SGP 20.0 U/L (12-78); Albumin, Blood 3.5 g/dL (3.4-5.0); Albumin/Globulin Ratio 1.2 (0.8-1.8); Anion Gap 10.0 mmol/L (3-11); Aspartate Aminotrans (AST/SGOT 25.0 U/L (12-37); Bilirubin, Total 1.2 mg/dL (0.1-1.0); Blood Urea Nitrogen 22.0 mg/dL (8-24); CO2, Blood 28.0 mmol/L (21-32); Calcium, Blood 9.3 mg/dL (8.5-10.1); Chloride, Blood 104.0 mmol/L (98-108); Creatinine, Blood 1.16 mg/dL (0.60-1.20); Globulin, Blood 3.0 g/dL (2.2-4.0); Glucose, Blood 131.0 mg/dL (70-99); Potassium, Blood 3.9 mmol/L (3.5-5.5); Sodium, Blood 138.0 mmol/L (136-145); Total Protein, Blood 6.5 g/dL (6.4-8.2)
[2025-03-16] MEDS ORDERED: TRAZ100 PO (15:51)
[2025-03-16] MEDS ORDERED: ONDA4 PO (15:52)
[2025-03-16] MEDS ORDERED: Robaxin750 MG PO (16:05)
[2025-03-16] MEDS ORDERED: HYDACE10B PO (16:05)
[2025-03-16] MEDS ORDERED: JARDIANCE25 MG PO (16:07)
[2025-03-16] MEDS ORDERED: SEMAGLUTID0.25 MG/0. SQ (16:07)
[2025-03-16] MEDS ORDERED: Ondansetron HCl 2 MG / ML 2ML Vial IV PRN (20:05)
[2025-03-16] MEDS ORDERED: NS 1,000 ML IV SCH (20:10)
[2025-03-16] MEDS ORDERED: FLU VACC TS2025(65UP)/MF59C/PF 45 MCG/0.5 ML SYRINGE IM SCH (20:10)
[2025-03-16] MEDS ORDERED: OxyCODONE 5 mg/Acetamin 325 mg TABLET PO PRN (20:15)
[2025-03-16] MEDS ORDERED: Insulin Human Lispro 100 Units/ML 3ML Syringe SC SCH (21:00)
[2025-03-16 21:31] VITALS: BP 148/58
[2025-03-16] MEDS ORDERED: ATOR40TA PO (21:35)
--- NOTE | 2025-03-16 23:23 | NUR ---
TRANSFER NOTE: PT AOX4, 1PA STAND PIVOT FROM [facility]. ORIENTED TO ROOM AND CALL LIGHT. COMPLAINS OF SOME RESTLESS LEGS, DIFFICULTY SLEEPING, AND PAIN. MEDICATED PER EMR. PT PLEASANT AND COOPERATIVE IN CARE. INSTRUCTED ABOUT FALL PREVENTION AND TO CALL FOR ASSISTANCE. PT IN BED RESTING, BED IN LOWEST POSITION, CALL LIGHT IN REACH. CONTINUING CARE.
[2025-03-17 04:18] VITALS: BP 149/57
--- NOTE | 2025-03-17 05:41 | NUR ---
SHIFT SUMMARY: PT AOX4, 1-2PA STAND PIVOT OR STAND TO USE URINAL. PT CALLS APPROPRAITELY AND ABLE TO MAKE NEEDS KNOWN. COMPLAINS OF PAIN/ SPASMS IN HIS LEGS AND KNEES. MEDICATED PER EMR. DESATTED TO THE 80'S WHILE ASLEEP. PT STATES HE IS SUPPOSED TO WEAR A CPAP BUT DOESNT. HASNT DESATTED AT REST SINCE THAT ONE TIME, SENSOR CHANGED AND SEEMS TO BE MAINTAING WELL. LEFT HAND HAVING DIFFICULTY CLOSING AND BENDING LEFT ARM, LEGS SEEM TO BE WEAKER THAN NORMAL BILATERALLY. PT PLEASANT AND AGREEABLE WITH CARE. TOLERATING MEDICATIONS WELL, NO ACUTE OVERNIGHT EVENTS. PT IN BED RESTING, BED IN LOWEST POSITION, CALL LIGHT IN REACH. CONTINUING CARE.
[2025-03-17 07:26] VITALS: BP 139/51
[2025-03-17] MEDS ORDERED: HYDROcodone 5-APAP 325 TAB PO PRN (08:10)
[2025-03-17] MEDS ORDERED: LORazepam 2 MG/ML 1ML Injection IV PRN (08:20)
[2025-03-17] MEDS ORDERED: Multivitamins 1 Tab PO SCH (09:00)
[2025-03-17 11:25] VITALS: BP 128/48
--- NOTE | 2025-03-17 15:08 | NUR ---
1200- SHORT BACK TO DISCUSS MRI WITH PATIENT, LIKELY NEURO CONSULT FOR CLARIFICATION OF PLAN. PT GOING TO BE COBRA'D TO ANOTHER HOSPITAL THAT HAS NEURO CAPABILITIES PT NEEDS.
[2025-03-17 15:35] VITALS: BP 125/50
--- NOTE | 2025-03-17 16:28 | NUR ---
REPORTED OFF TO STANISLAV SUNSHINE TO TAKE OVER CARE OF THIS PATIENT 9977- AWARE OF COBRA PLAN-
[2025-03-17 17:14] VITALS: BP 125/50
--- NOTE | 2025-03-17 17:47 | NUR ---
ASSUMED CARE OF PATIENT AT 1625. PATIENT RESTING COMFORTABLY IN ROOM WITH CALL LIGHT WITHIN REACH AND BED IN LOWEST POSITION. REPORT CALLED TO NICHOLE DELUNA AT [facility] FOR TRANSFER AT 1733. PATIENT WAITING FOR TRANSPORT TO ARRIVE.
--- NOTE | 2025-03-17 18:28 | NUR ---
PATIENT PICKED UP FOR TRANSPORT BY [facility]. ALL BELONGINGS IN PATIENT POSSESSION AT TIME OF TRANSPORT. PATIENT TRANSPORTED VIA GURNEY.
== END 2025-03-17 18:26 | disposition short-term general hospital (02) ==
LOC: ER 12:40 → MEDS 12:41
PROVIDERS: Emergency Medicine; ADMIT Internal Medicine
DX: R53.1 Weakness (principal); I48.91 Unspecified atrial fibrillation; E11.9 Type 2 diabetes mellitus without complications; I10 Essential (primary) hypertension; G47.33 Obstructive sleep apnea (adult) (pediatric); N40.0 Benign prostatic hyperplasia without lower urinary tract symptoms; M48.02 Spinal stenosis, cervical region; F17.210 Nicotine dependence, cigarettes, uncomplicated; E66.01 Morbid (severe) obesity due to excess calories; Z68.32 Body mass index [BMI] 32.0-32.9, adult; Z88.2 Allergy status to sulfonamides; Z88.8 Allergy status to other drugs, medicaments and biological substances; Z79.01 Long term (current) use of anticoagulants; Z79.84 Long term (current) use of oral hypoglycemic drugs; Z79.899 Other long term (current) drug therapy
CPT/HCPCS: 70450; 70551; 72125; 72141; 80053; 82947; 85025; 93005; 93010; 94762; 96374; 97162; 97530; 99285-25; A9270; G0378; J2060; J7030